=== PATIENT | male | born 1955 | race Caucasian/White ===

== ENCOUNTER 2020-07-09 07:33 | Emergency (ER) | payer BC, OTHER ==
[~2020-07-09] VITALS: Ht 175.3 cm; Wt 76.1 kg
[2020-07-09] MEDS ORDERED: SODIUM CHLORIDE FLUSH 10ML SYR IVF ONE (08:00)
[2020-07-09] MEDS ORDERED: SODIUM CHLORIDE 0.9% 1,000 ML IV ONE (08:00)
[2020-07-09] MEDS ORDERED: DILTIAZEM 5 MG/ML, 5ML IV ONE (08:00)
[2020-07-09 08:11] LABS: BASOPHILS % (AUTO) 1 % (0-1); EOSINOPHILS % (AUTO) 2 % (1-7); LYMPHOCYTES % (AUTO) 29 % (22-44); MEAN CORPUSCULAR HEMOGLOBIN 26.2 pg (27.5-34.5); MEAN CORPUSCULAR HGB CONC 33.1 g/dL (33.2-36.2); MONOCYTES % (AUTO) 10 % (2-9); NEUTROPHILS % (AUTO) 59 % (42-75); PLATELET COUNT 211 x10^3/uL (130-400); RED BLOOD COUNT 5.29 x10^6/uL (4.38-5.82); RED CELL DISTRIBUTION WIDTH 15.2 % (9.4-14.8)
[2020-07-09 08:14] LABS: MD NO
[2020-07-09 08:23] LABS: ALANINE AMINOTRANSFERASE 26 U/L (12-78); ALBUMIN 3.9 g/dL (3.4-5.0); ANION GAP 7 mmol/L (5-15); CALCIUM 8.6 mg/dL (8.5-10.1); CHLORIDE 110 mmol/L (98-107); CREATININE 1.06 mg/dL (0.7-1.3)
[2020-07-09] MEDS ORDERED: DILTIAZEM 5 MG/ML, 5ML ONE (08:28)
[2020-07-09] MEDS ORDERED: DILTIAZEM 125 MG in SODIUM CHLORIDE 0.9% 100 ML IV SCH (08:30)
[2020-07-09 08:33] LABS: ALKALINE PHOSPHATASE 69 U/L (45-117); BILIRUBIN,TOTAL 0.7 mg/dL (0.2-1.0); TOTAL PROTEIN 7.5 g/dL (6.4-8.2); TROPONIN I < 0.015 ng/mL (0.000-0.045)
[2020-07-09 08:45] LABS: FREE T4 (FREE THYROXINE) 0.89 ng/dL (0.76-1.46)
[2020-07-09] MEDS ORDERED: APIXABAN 5 MG TABLET PO ONE (11:00)
--- NOTE | 2020-07-09 11:06 | NUR ---
PTNSELF CONVERTED FROM AFIB TO SINUS RHYTHM, RATE 55. [address] CON[address]IRM[address] GREENBERG ADVISED.
[2020-07-09] MEDS ORDERED: APIXABAN 5 MG TABLET ONE (11:09)
[2020-07-09] MEDS ORDERED: ETOMIDATE 20 MG/10 ML IVPush ONE (11:30)
[2020-07-09] MEDS ORDERED: NEOSPORIN OINT. PKT 1 PACKET ONE (12:01)
[2020-07-09] MEDS ORDERED: METOPROLOL TARTRATE 25 MG TAB ONE (12:02)
[2020-07-09] MEDS ORDERED: METOPROLOL SUCCINATE 25 MG TAB.ER.24H PO ONE ×2 (12:30→13:00)
--- NOTE | 2020-07-09 12:35 | NUR ---
PT AND FMAILY MEMBER BEDSIDE EDUCATED ABOUT SIDE EFFCTS OF BETA-BLOCKERS, INCLUDING RISK OF FALLING. PT STATES UNDERSTANDING OF RISKS.
--- NOTE | 2020-07-09 12:35 | NUR ---
PT MEDICATED PER MAY. DR GREENBERG CONFIRMED ADMIN OF MEDICATION WITH LOW HR. PT STATES HE ALWAYS HAS A LOW HEART RATE AND NORMALLY IS IN THE 50'S.
[2020-07-09 13:33] VITALS: BP 107/71
--- NOTE | 2020-07-09 13:38 | NUR ---
PT REC'VD DISCHARGE INSTRUCTIONS AND EDUCATION. PT HAD NO FURTHER QUESTIONS. PT AMBULATED TO DC AREA, STEADY GAIT.
== END 2020-07-09 13:40 | disposition home or self-care (01) ==
LOC: ED 09:31
DX: S80.812A Abrasion, left lower leg, initial encounter (principal); R94.6 Abnormal results of thyroid function studies; I48.91 Unspecified atrial fibrillation; R55 Syncope and collapse; R42 Dizziness and giddiness; R07.89 Other chest pain; Z85.828 Personal history of other malignant neoplasm of skin; X58.XXXA Exposure to other specified factors, initial encounter; Y93.89 Activity, other specified; Y92.89 Other specified places as the place of occurrence of the external cause; Y99.8 Other external cause status
CPT/HCPCS: 36415; 71045; 80053; 84439; 84443; 84484; 85025; 93005; 96365; 96366; 96376; 99285; J7030